=== PATIENT | female | born 1935 | race Caucasian/White ===

== ENCOUNTER → 2017-02-23 | Outpatient (CLI) | payer OTHER, BC ==
[~2017-02-23] MED LIST: ASPIR-LOW81 MG PO; CALCIUM 500 +1 EAC5 PO; FISH OIL 1,001000 M2 PO; LIPITOR40 MG PO; LISINOPRIL10 MG PO; NEXIUM40 MG PO; ZOFRAN ODT4 MG PO
--- NOTE | ~2017-02-23 | 2DMMODE ---
[facility] Daniella Toucan [place] [address] 2 D/M-MODE ECHOCARDIOGRAM Name: PARAMJIT MURPHY Room #: REG [facility]#: [id number] Admission: 02/23/17 Attend Phys: Fred Brizuela MD Discharge: Date of : 39 Date of Service: 02/23/17 1114 Report #: [id number] THIS REPORT FOR: //name// APPROVED REPORT Study performed: 02/23/2017 10:36:43 EXAM: Comprehensive 2D, Doppler, and color-flow Echocardiogram Patient Location: Out-Patient Status: routine Other Information Study Quality: Good Indications CAD, CABG, HTN, HLP, PVD 2D Dimensions RVDd: 33.98 mm LVEF(%): 58.80 (>50%) IVSd: 9.96 (7-11mm) LVOT Diam: 19.21 (18-24mm) LVDd: 37.16 mm PWd: 9.51 (7-11mm) LVDs: 25.82 (25-40mm) Aortic Root: 29.14 mm Sy's LVEF: 58.80 % Volumes Left Atrial Volume (Systole) Single Plane 4CH: 37.97 mL Single Plane 2CH: 35.71 mL LA ESV Index: 28.00 mL/m2 Aortic Valve AoV Peak Dc.: 1.75 m/s AO Peak Gr.: 12.23 mmHg LVOT Max P.28 mmHg LVOT Max V: 1.03 m/s HAROON Vmax: 1.71 cm2 Mitral Valve E/A Ratio: 0.8 MV Decel. Time: 157.09 ms MV E Max Dc.: 0.72 m/s MV A Dc.: 0.89 m/s MV PHT: 45.55 ms IVRT: 73.82 ms [facility] [email or web address] [address] 2 D/M-MODE ECHOCARDIOGRAM Name: KATHERINEPARAMJIT M Room #: [facility]#: [id number] Admission: 02/23/17 Attend Phys: Fred Brizuela MD Discharge: Date of : 39 Date of Service: 02/23/17 1114 Report #: [id number] Pulmonary Valve PV Peak Dc.: 0.71 m/s PV Peak Gr.: 1.99 mmHg Pulmonary Vein P Vein S: 0.70 m/s P Vein D: 0.42 m/s P Vein S/D Ratio: 1.67 Tricuspid Valve TR Peak Dc.: 2.75 m/s RAP Estimate: 5.00 mmHg TR Peak Gr.: 30.21 mmHg PA Pressure: 35.00 mmHg Left Ventricle The left ventricle is normal size. There is normal LV segmental wall motion. There is normal left ventricular wall thickness. Left ventricular systolic function is normal. LVEF is 60-65%. Grade I - abnormal relaxation pattern. Right Ventricle The right ventricle is normal size. The right ventricular systolic function is normal. Atria Left atrium appears mildly dilated. The right atrium size is normal. Aortic Valve The Aortic valve is sclerotic. Trace aortic regurgitation. There is no aortic valvular stenosis. Mitral Valve Mitral valve leaflets are mildly thickened. Mild mitral annular calcification. Mild to moderate mitral regurgitation. Tricuspid Valve The tricuspid valve is normal in structure. There is mild to moderate tricuspid regurgitation. The right atrial pressure is estimated at 5 mmHg. There is mild pulmonary hypertension with an estimated PAP of 35mmHg. Pulmonic Valve The pulmonary valve is normal in structure. Trace pulmonic regurgitation. [facility] [address] [place] [address] 2 D/M-MODE ECHOCARDIOGRAM Name: PARAMJIT MURPHY Room #: REG [facility]#: [id number] Admission: 02/23/17 Attend Phys: Fred Brizuela MD Discharge: Date of : 39 Date of Service: 02/23/17 1114 Report #: [id number] Great Vessels The aortic root is normal in size. Ascending aorta is not well visualized. IVC is normal in size and collapses >50% with inspiration. Pericardium There is no pericardial effusion. <Conclusion> The left ventricle is normal size. Left ventricular systolic function is normal. Grade I - abnormal relaxation pattern. The right ventricle is normal size. Left atrium appears mildly dilated. Trace aortic regurgitation. Mitral valve leaflets are mildly thickened. Mild mitral annular calcification. Mild to moderate mitral regurgitation. There is mild to moderate tricuspid regurgitation. The right atrial pressure is estimated at 5 mmHg. There is mild pulmonary hypertension with an estimated PAP of 35mmHg. <ELECTRONICALLY SIGNED> By: Nilton Lepe MD 02/23/17 1114 1114 1114 Nilton Lepe MD /INF
== END ==
LOC: CAT 09:34
DX: I25.10 Atherosclerotic heart disease of native coronary artery without angina pectoris (principal); I10 Essential (primary) hypertension; F03.90 Unspecified dementia, unspecified severity, without behavioral disturbance, psychotic disturbance, mood disturbance, and anxiety; R63.4 Abnormal weight loss; R51 Headache; F81.81 Disorder of written expression; R06.00 Dyspnea, unspecified